=== PATIENT | male | born 1985 | race African-American/Black ===

== ENCOUNTER 2020-02-29 10:24 | Emergency (ER) | payer SELFPAY ==
[~2020-02-29] VITALS: Ht 175.3 cm; Wt 68.5 kg
[2020-02-29 10:25] VITALS: BP 122/59
== END 2020-02-29 12:50 | disposition left against medical advice (07) ==
LOC: ER 10:48
DX: Z53.21 Procedure and treatment not carried out due to patient leaving prior to being seen by health care provider (principal)

== ENCOUNTER 2021-08-19 00:05 | Emergency (ER) | payer MEDICAID ==
[~2021-08-19] VITALS: Ht 177.8 cm; Wt 69.0 kg
[2021-08-19 00:30] VITALS: BP 126/78
[2021-08-19] MEDS ORDERED: CEPHALEXIN 250MG CAPSULE PO ONE (00:45)
[2021-08-19] MEDS ORDERED: CEPH500T MT (01:14)
== END 2021-08-19 01:41 | disposition home or self-care (01) ==
LOC: ER 00:29
DX: L03.116 Cellulitis of left lower limb (principal)
CPT/HCPCS: 99283

== ENCOUNTER 2021-11-23 02:28 | Emergency (ER) | payer MEDICAID ==
[~2021-11-23] VITALS: Ht 175.3 cm; Wt 73.0 kg
[~2021-11-23 02:28] MED LIST: CEPH500T MT
[2021-11-23] MEDS ORDERED: ACETAMINOPHEN WITH CODEINE 300/30MG TABLET PO ONE (05:30)
[2021-11-23] MEDS ORDERED: KETOROLAC 60MG/2ML VIAL IM ONE (05:30)
[2021-11-23] MEDS ORDERED: OXYC-100 PO ×5 (05:40→19:53)
[2021-11-23] MEDS ORDERED: IBUP-2028 PO ×4 (05:40→19:53)
[2021-11-23 06:08] VITALS: BP 115/75
[2021-11-23] MEDS ORDERED: LIDO1ADH23 TP (20:09)
[2021-11-23] MEDS ORDERED: HYDR-4001 MT (20:09)
[2021-11-23] MEDS ORDERED: IBUP-2028 MT (20:09)
== END 2021-11-23 06:08 | disposition home or self-care (01) ==
LOC: ER 02:28
DX: M54.50 Low back pain, unspecified (principal)
CPT/HCPCS: 96372; 99283; J1885

== ENCOUNTER 2021-11-23 18:11 | Emergency (ER) | payer MEDICAID ==
[~2021-11-23] VITALS: Ht 182.9 cm; Wt 82.0 kg
[~2021-11-23 18:11] MED LIST changes: +IBUP-2028 PO; +OXYC-100 PO
[2021-11-23] MEDS ORDERED: HYDROCODONE/ACETAMINOPHEN 5/325MG TABLET PO ONE (19:30)
[2021-11-23] MEDS ORDERED: LIDOCAINE 5% PATCH TOP SCH (19:30)
[2021-11-23] MEDS ORDERED: KETOROLAC 60MG/2ML VIAL IM ONE (19:30)
[2021-11-23] MEDS ORDERED: OXYC-100 PO (19:53)
[2021-11-23] MEDS ORDERED: IBUP-2028 PO ×2 (19:53)
[2021-11-23 20:04] VITALS: BP 126/72
[2021-11-23] MEDS ORDERED: IBUP-2028 MT (20:09)
[2021-11-23] MEDS ORDERED: HYDR-4001 MT (20:09)
[2021-11-23] MEDS ORDERED: LIDO1ADH23 TP (20:09)
== END 2021-11-23 20:31 | disposition home or self-care (01) ==
LOC: ER 18:11
DX: M54.50 Low back pain, unspecified (principal)
CPT/HCPCS: 96372; 99283; J1885

== ENCOUNTER 2022-01-13 10:38 | Emergency (ER) | payer MEDICAID ==
[~2022-01-13] VITALS: Ht 175.3 cm; Wt 70.0 kg
[~2022-01-13 10:38] MED LIST changes: +HYDR-4001 MT; +IBUP-2028 MT; -IBUP-2028 PO; +LIDO1ADH23 TP; -OXYC-100 PO
[2022-01-13] MEDS ORDERED: IBUP-2029 MT (13:25)
[2022-01-13] MEDS ORDERED: CYCL10TA21 MT (13:25)
[2022-01-13] MEDS ORDERED: KETOROLAC 60MG/2ML VIAL IM ONE (13:30)
[2022-01-13 13:36] VITALS: BP 113/65
== END 2022-01-13 13:57 | disposition home or self-care (01) ==
LOC: ER 10:47
DX: M54.12 Radiculopathy, cervical region (principal)
CPT/HCPCS: 96372; 99283; J1885

== ENCOUNTER 2022-01-14 20:41 | Emergency (ER) | payer MEDICAID ==
[~2022-01-14] VITALS: Ht 170.2 cm; Wt 69.0 kg
[~2022-01-14 20:41] MED LIST changes: +CYCL10TA21 MT; +IBUP-2029 MT
[2022-01-15] MEDS ORDERED: KETOROLAC 60MG/2ML VIAL IM ONE (00:30)
[2022-01-15 00:56] VITALS: BP 112/79
[2022-01-15] MEDS ORDERED: NAPR-681 MT (01:46)
[2022-01-15] MEDS ORDERED: LIDO1ADH23 TP (01:46)
== END 2022-01-15 01:55 | disposition home or self-care (01) ==
LOC: ER 20:41
DX: S16.1XXA Strain of muscle, fascia and tendon at neck level, initial encounter (principal); X58.XXXA Exposure to other specified factors, initial encounter; Y93.89 Activity, other specified; Y92.018 Other place in single-family (private) house as the place of occurrence of the external cause
CPT/HCPCS: 96372; 99283; J1885

== ENCOUNTER 2022-05-18 22:55 | Emergency (ER) | payer MEDICAID ==
[~2022-05-18] VITALS: Ht 175.3 cm; Wt 70.0 kg
[~2022-05-18 22:55] MED LIST changes: -IBUP-2028 MT; -IBUP-2029 MT; +NAPR-681 MT
[2022-05-18 23:30] VITALS: BP 135/80
== END 2022-05-19 06:55 | disposition left against medical advice (07) ==
LOC: ER 22:55
DX: Z53.21 Procedure and treatment not carried out due to patient leaving prior to being seen by health care provider (principal)

== ENCOUNTER 2022-10-06 23:52 | Emergency (ER) | payer MEDICAID ==
[~2022-10-06] VITALS: Ht 177.8 cm; Wt 74.0 kg
[2022-10-07] MEDS ORDERED: METH-653 MT (01:07)
[2022-10-07] MEDS ORDERED: IBUP-2029 MT (01:07)
[2022-10-07] MEDS ORDERED: KETOROLAC 30MG/ML VIAL IM ONE (01:15)
[2022-10-07] MEDS ORDERED: METHOCARBAMOL 500MG TABLET PO ONE (01:15)
[2022-10-07 01:32] VITALS: BP 103/58
== END 2022-10-07 01:34 | disposition home or self-care (01) ==
LOC: ER 23:52
DX: M25.512 Pain in left shoulder (principal); Z79.899 Other long term (current) drug therapy
CPT/HCPCS: 99283; J1885

== ENCOUNTER 2022-11-28 15:48 | Emergency (ER) | payer MEDICAID ==
[~2022-11-28] VITALS: Ht 177.8 cm; Wt 72.7 kg
[~2022-11-28 15:48] MED LIST changes: +IBUP-2029 MT; +METH-653 MT
[2022-11-28 15:54] VITALS: BP 128/59; PULSE 106; RESP 18; TEMP 98.3; O2SAT 99
[2022-11-29] MEDS ORDERED: NAPR375T5 MT (02:32)
== END 2022-11-28 18:39 | disposition home or self-care (01) ==
LOC: ER 18:09
DX: Z53.21 Procedure and treatment not carried out due to patient leaving prior to being seen by health care provider (principal)
CPT/HCPCS: 99281

== ENCOUNTER 2023-05-12 21:52 | Emergency (ER) | payer MEDICAID ==
[~2023-05-12] VITALS: Ht 175.3 cm; Wt 73.0 kg
[~2023-05-12 21:52] MED LIST changes: +NAPR375T5 MT
[2023-05-12 22:07] VITALS: BP 119/67; PULSE 77; RESP 14; TEMP 98.5; O2SAT 99
[2023-05-13 00:38] LABS: CLARITY URINE CLEAR (CLEAR); COLOR URINE YELLOW (YELLOW); GLUCOSE URINE NEGATIVE (NEGATIVE); KETONES URINE NEGATIVE (NEGATIVE); LEUKOCYTE ESTERASE URINE NEGATIVE (NEGATIVE); NITRITE URINE NEGATIVE (NEGATIVE); OCCULT BLOOD URINE NEGATIVE (NEGATIVE); PH URINE 5.5 (4.5-8.0); PROTEIN URINE TRACE (NEGATIVE)
[2023-05-13] MEDS ORDERED: IBUP-2029 PO (01:09)
[2023-05-13] MEDS ORDERED: DOXY100T28 MT (01:09)
[2023-05-13] MEDS ORDERED: CEPH500C2 MT (01:09)
[2023-05-13 01:19] LABS: RBC URINE 0-2 /hpf (0-2); SQUAMOUS EPITHELIAL CELL URINE RARE /lpf (RARE/1+); WBC URINE 0-2 /hpf (0-2)
[2023-05-13 01:20] LABS: BACTERIA URINE NONE SEEN; CALCIUM OXALATE CRYSTALS URINE 1+ /lpf
== END 2023-05-13 01:03 | disposition home or self-care (01) ==
LOC: ER 21:52
DX: N50.9 Disorder of male genital organs, unspecified (principal); R59.0 Localized enlarged lymph nodes; Z79.899 Other long term (current) drug therapy
CPT/HCPCS: 36415; 81003; 86592; 99283

== ENCOUNTER 2024-04-20 23:27 | Emergency (ER) | payer MEDICAID ==
[~2024-04-20] VITALS: Ht 175.3 cm; Wt 73.0 kg
[~2024-04-20 23:27] MED LIST changes: +CEPH500C2 MT; +DOXY100T28 MT; +IBUP-2029 PO; +NAPR-1494 MT; -NAPR375T5 MT
[2024-04-20 23:37] VITALS: O2SAT 99
[2024-04-20 23:47] VITALS: BP 116/75; PULSE 84; RESP 16; TEMP 98; O2SAT 98
[2024-04-21] MEDS: KETOROLAC 15MG/ML VIAL IM ONE (00:15)
[2024-04-21] MEDS: LIDOCAINE 5% PATCH TOP SCH (02:18)
[2024-04-21] MEDS: KETOROLAC 15MG/ML VIAL IM NR (02:24)
[2024-04-21] MEDS ORDERED: NAPR-1176 MT (03:27)
[2024-04-21] MEDS ORDERED: LIDO700A15 TP (03:27)
== END 2024-04-21 03:38 | disposition home or self-care (01) ==
LOC: ER 23:27
DX: M54.2 Cervicalgia (principal); M25.511 Pain in right shoulder; Z79.1 Long term (current) use of non-steroidal anti-inflammatories (NSAID); Z79.899 Other long term (current) drug therapy
CPT/HCPCS: 99283; 73030; 96372; J1885; Z7610

== ENCOUNTER 2024-04-28 22:30 | Emergency (ER) | payer MEDICAID ==
[~2024-04-28] VITALS: Ht 177.8 cm; Wt 73.0 kg
[~2024-04-28 22:30] MED LIST changes: +LIDO700A15 TP; +NAPR-1176 MT
[2024-04-28 22:36] VITALS: O2SAT 98
[2024-04-28 22:38] VITALS: TEMP 36.72516; O2SAT 98
[2024-04-29] MEDS: MORPHINE SULFATE 4 MG/ML INJ (FOR IV/IM USE) IM ONE (01:20)
[2024-04-29 01:21] VITALS: BP 116/81; PULSE 90; RESP 18
[2024-04-29] MEDS: KETOROLAC 30MG/ML VIAL IM ONE (01:21)
== END 2024-04-29 02:02 | disposition home or self-care (01) ==
LOC: ER 22:30
DX: S13.4XXA Sprain of ligaments of cervical spine, initial encounter (principal); S29.012A Strain of muscle and tendon of back wall of thorax, initial encounter; M48.02 Spinal stenosis, cervical region; Z87.891 Personal history of nicotine dependence; Z79.1 Long term (current) use of non-steroidal anti-inflammatories (NSAID); X58.XXXA Exposure to other specified factors, initial encounter; Y93.89 Activity, other specified; Y92.89 Other specified places as the place of occurrence of the external cause; Y99.8 Other external cause status
CPT/HCPCS: 99285; 71045; 72125; 96372; J1885; J2270